=== PATIENT | male | born 1955 | race Caucasian/White ===

== ENCOUNTER 2020-09-30 08:08 | Outpatient (CLI) | payer OTHER | END 2020-09-30 08:09 | disposition home or self-care (01) | LOC: BICULT 08:08 | PROVIDERS: ATTEND Family Medicine | DX: R10.11 Right upper quadrant pain (principal); N28.1 Cyst of kidney, acquired | CPT/HCPCS: 93975 ==

== ENCOUNTER 2022-06-12 23:52 | Inpatient (IN) | payer MEDICARE, OTHER ==
[2022-06-13 00:29] LABS: #Basophils 0.1 thou/uL (0.0-0.2); #Eosinphils 0.2 thou/uL (0.0-0.7); #Lymphocytes 2.4 thou/uL (1.20-3.40); #Monocytes 0.5 thou/uL (0.11-0.59); #Neutrophils 10.3 thou/uL (1.40-6.50); %Basophils 0.5 % (0.0-1.0); %Eosinophils 1.2 % (0.0-10.0); %Lymphocytes 17.8 % (21.0-51.0); %Monocytes 3.6 % (0.0-10.0); Hemoglobin 15.2 g/dL (14.0-18.0); Mean Corpuscular HGB CONC 34.4 g/dL (32.0-36.0); Mean Corpuscular Hemoglobin 33.6 pg (27.0-31.0); Mean Corpuscular Volume 97.7 fl (78.0-98.0); Mean Platelet Volume 8.3 fL (7.4-10.4); Platelet Count 188 10x3/uL (130-400); RBC Distribution Width 11.7 % (11.5-14.5); Red Blood Cell (RBC) Count 4.53 mill/uL (4.70-6.10); White Blood Cell (WBC) Count 13.3 10x3/uL (4.8-10.8)
[2022-06-13 00:50] LABS: ALT (SGPT) 18 U/L (8-55); AST (SGOT) 22 U/L (5-34); Albumin 4.2 g/dL (3.4-4.8); Alkaline Phosphatase 78 U/L (40-110); Anion Gap 17 mmol/L (10-20); BUN (Urea Nitrogen) 16 mg/dL (8.4-25.7); Bilirubin, Total 0.4 mg/dL (0.2-1.2); Calc. Creatinine Clearance 0 mL/min (70-130); Calcium 8.5 mg/dL (7.8-10.44); Carbon Dioxide 20 mmol/L (23-31); Chloride 101 mmol/L (98-107); Estimated GFR 63; Globulin 2.6 g/dL (2.4-3.5); Glucose 385 mg/dL (80-115); Potassium 4.9 mmol/L (3.5-5.1); Protein, Total 6.8 g/dL (5.8-8.1); Sodium 133 mmol/L (136-145)
[2022-06-13] MEDS ORDERED: FENTANYL 50 MCG/ML 1 ML VIAL ONE ×2 (01:07→09:11)
[2022-06-13 01:11] LABS: CKMB 1.8 ng/mL (0-6.6)
[2022-06-13] MEDS ORDERED: Nitroglycerin 0.4 MG TAB (25 Tab Bottle) SL PRN (02:41)
[2022-06-13] MEDS ORDERED: Acetaminophen 325 MG TAB PO PRN (02:41)
[2022-06-13] MEDS ORDERED: Ondansetron PF 4 MG/2 ML Vial IVP PRN (02:41)
[2022-06-13] MEDS ORDERED: Dextrose 50% Abboject 50 ML SYRINGE SLOW IVP PRN (02:41)
[2022-06-13] MEDS ORDERED: Morphine 4 MG/ML VIAL SLOW IVP PRN ×2 (02:41→10:58)
[2022-06-13] MEDS ORDERED: HumaLOG 300 UNITS/3 ML VIAL SC PRN (02:41)
[2022-06-13] MEDS ORDERED: Dextrose 5% in Water 1,000 ML IV PRN (02:41)
[2022-06-13] MEDS ORDERED: Ondansetron ODT 4 MG TAB PO PRN (02:41)
[2022-06-13 04:23] LABS: #Lymphocytes 1.2 thou/uL (1.20-3.40); #Monocytes 0.2 thou/uL (0.11-0.59); #Neutrophils 10.2 thou/uL (1.40-6.50); %Basophils 0.1 % (0.0-1.0); %Eosinophils 0.3 % (0.0-10.0); %Lymphocytes 10.4 % (21.0-51.0); %Monocytes 1.6 % (0.0-10.0); %Neutrophils 87.5 % (42.0-75.0); Hemoglobin 14.3 g/dL (14.0-18.0); Mean Corpuscular HGB CONC 34.5 g/dL (32.0-36.0); Mean Corpuscular Hemoglobin 33.2 pg (27.0-31.0); Mean Corpuscular Volume 96.3 fl (78.0-98.0); Mean Platelet Volume 8.5 fL (7.4-10.4); Platelet Count 161 10x3/uL (130-400); RBC Distribution Width 11.6 % (11.5-14.5); Red Blood Cell (RBC) Count 4.29 mill/uL (4.70-6.10); White Blood Cell (WBC) Count 11.6 10x3/uL (4.8-10.8)
[2022-06-13 04:40] LABS: Anion Gap 12 mmol/L (10-20); BUN (Urea Nitrogen) 15 mg/dL (8.4-25.7); Calc. Creatinine Clearance 0 mL/min (70-130); Calcium 8.3 mg/dL (7.8-10.44); Carbon Dioxide 24 mmol/L (23-31); Cardiac Risk 5.4 (Less than 4.5); Chloride 101 mmol/L (98-107); Cholesterol 183 mg/dl (< 200 Desired); Estimated GFR 66; HDL Cholesterol 34 mg/dL (>60 Neg Risk); LDL Cholesterol, Calculated 103 mg/dL; Magnesium 1.9 mg/dL (1.6-2.6); Potassium 4.9 mmol/L (3.5-5.1); Sodium 132 mmol/L (136-145); Triglycerides 228 mg/dL (Less than 150)
[2022-06-13] MEDS: Sodium Chloride 0.9% 1,000 ML IV SCH ×3 (04:41→19:40)
[2022-06-13 04:51] LABS: Glucose 436 mg/dL (80-115)
[2022-06-13 04:52] LABS: Troponin I 1.036 ng/mL (< 0.028)
[2022-06-13] MEDS: HumaLOG 300 UNITS/3 ML VIAL SC PRN ×3 (05:02→20:10)
[2022-06-13] MEDS ORDERED: Enoxaparin Sodium 100 MG/ML SYRINGE SC SCH ×2 (05:15→21:00)
[2022-06-13] MEDS ORDERED: Morphine 4 MG/ML VIAL SLOW IVP SCH (05:15)
[2022-06-13] MEDS ORDERED: Aspirin 325 MG TAB PO SCH (05:15)
[2022-06-13 05:22] VITALS: BMI 34.9
[2022-06-13 07:40] LABS: Troponin I 12.099 ng/mL (< 0.028)
[2022-06-13] MEDS ORDERED: Heparin 10,000 UNITS/ 10 ML VIAL SLOW IVP SCH (07:45)
[2022-06-13 08:36] LABS: Hemoglobin 14.3 g/dL (14.0-18.0); Platelet Count 170 10x3/uL (130-400)
[2022-06-13] MEDS ORDERED: Heparin 10,000 UNITS/ 10 ML VIAL ONE (08:42)
[2022-06-13] MEDS ORDERED: Lidocaine 1% (PF) 30 ML VIAL ONE (08:43)
[2022-06-13] MEDS ORDERED: Heparin 25,000 units/D5W 500 ML IVPB SCH (09:00)
[2022-06-13] MEDS ORDERED: Aspirin Chewable 81 MG TAB PO SCH (09:00)
[2022-06-13] MEDS ORDERED: Iopamidol 370 76% 100 ML VIAL ONE ×2 (09:09→09:12)
[2022-06-13] MEDS ORDERED: Midazolam HCl 2 mg/2 ml Vial ONE (09:11)
[2022-06-13] MEDS ORDERED: Iopamidol 370 76% 50 ML VIAL FS ONE (09:20)
[2022-06-13] MEDS ORDERED: Heparin 25,000 units/D5W 500 ML ONE (09:33)
[2022-06-13 10:09] LABS: Prothrombin Time 13.8 sec (12.0-14.7)
[2022-06-13 10:10] LABS: PTT 31.1 sec (22.9-36.1)
[2022-06-13] MEDS: Insulin Glargine 30 UNITS/0.3 ML VIAL SC SCH ×2 (10:20→20:03)
[2022-06-13] MEDS ORDERED: Morphine 2 MG/ML VIAL ONE (10:53)
[2022-06-13] MEDS ORDERED: HumaLOG 300 UNITS/3 ML VIAL ONE (11:09)
[2022-06-13] MEDS ORDERED: Lidocaine 1% PF 5 ML VIAL ONE (14:20)
[2022-06-13] MEDS ORDERED: Morphine 4 MG/ML VIAL ONE (15:49)
[2022-06-13] MEDS ORDERED: Communication Order-Pharmacy FS SCH (18:26)
[2022-06-13] MEDS: Morphine 4 MG/ML VIAL SLOW IVP PRN (19:22)
[2022-06-13] MEDS ORDERED: Atorvastatin Calcium 40 MG TAB PO SCH (21:00)
[2022-06-14] MEDS: Morphine 4 MG/ML VIAL SLOW IVP PRN ×4 (02:38→14:50)
[2022-06-14] MEDS: HumaLOG 300 UNITS/3 ML VIAL SC PRN (06:02)
[2022-06-14 06:45] LABS: #Monocytes 1.1 thou/uL (0.11-0.59); #Neutrophils 12.7 thou/uL (1.40-6.50); %Basophils 0.2 % (0.0-1.0); %Eosinophils 0.2 % (0.0-10.0); %Lymphocytes 6.9 % (21.0-51.0); %Monocytes 7.1 % (0.0-10.0); %Neutrophils 85.7 % (42.0-75.0); Hemoglobin 13.7 g/dL (14.0-18.0); Mean Corpuscular HGB CONC 33.4 g/dL (32.0-36.0); Mean Corpuscular Hemoglobin 32.9 pg (27.0-31.0); Mean Corpuscular Volume 98.6 fl (78.0-98.0); Mean Platelet Volume 8.4 fL (7.4-10.4); Platelet Count 147 10x3/uL (130-400); RBC Distribution Width 11.8 % (11.5-14.5); Red Blood Cell (RBC) Count 4.17 mill/uL (4.70-6.10); White Blood Cell (WBC) Count 14.8 10x3/uL (4.8-10.8)
[2022-06-14 06:57] LABS: Anion Gap 11 mmol/L (10-20); BUN (Urea Nitrogen) 18 mg/dL (8.4-25.7); Calc. Creatinine Clearance 115 mL/min (70-130); Calcium 8.1 mg/dL (7.8-10.44); Carbon Dioxide 24 mmol/L (23-31); Chloride 102 mmol/L (98-107); Estimated GFR 95; Glucose 234 mg/dL (80-115); Potassium 4.1 mmol/L (3.5-5.1); Sodium 133 mmol/L (136-145)
[2022-06-14] MEDS ORDERED: PHENYLEPHRINE-NS 100 MCG/ML 10 ML SYRINGE ONE (09:12)
[2022-06-14] MEDS ORDERED: Bupivacaine HCl 0.5%/Epinephrine 1:200,000/PF 30 ml Vial ONE (09:12)
[2022-06-14] MEDS ORDERED: Dexamethasone 4 mg/ml Vial ONE (09:12)
[2022-06-14] MEDS ORDERED: Midazolam HCl 5 mg/5 ml Vial ONE (09:52)
[2022-06-14] MEDS ORDERED: fentaNYL PF 100 MCG/2 ML SYRINGE ONE ×2 (09:52→11:05)
[2022-06-14] MEDS ORDERED: Rocuronium Bromide 50 MG/5 ML VIAL ONE (09:53)
[2022-06-14] MEDS ORDERED: CEFAZOLIN 2 GM in Sodium Chloride 0.9% 100 ML IVPB SCH (10:00)
[2022-06-14] MEDS ORDERED: Heparin 5,000 UNITS/ML VIAL ONE (10:32)
[2022-06-14] MEDS ORDERED: Lidocaine 2% PF 100 mg/5 ml Syringe ONE (10:32)
[2022-06-14] MEDS ORDERED: Thrombin 5000 UNITS/5 ML VIAL ONE (10:32)
[2022-06-14] MEDS ORDERED: Protamine Sulfate 250 MG/25 ML VIAL ONE (10:32)
[2022-06-14] MEDS ORDERED: Calcium Chloride 1 GM/10 ML Abboject SYRINGE ONE (10:32)
[2022-06-14] MEDS ORDERED: PROPOFOL 200 MG/20 ML VIAL ONE (10:32)
[2022-06-14] MEDS ORDERED: Heparin 30,000 units/30 ml VIAL ONE (10:32)
[2022-06-14] MEDS ORDERED: Papaverine 60 MG/2 ML VIAL ONE (10:32)
[2022-06-14] MEDS ORDERED: Succinylcholine 200 MG/10 ml SYRINGE FS ONE (10:32)
[2022-06-14] MEDS ORDERED: Mannitol 12.5 GM/50 ML ONE (10:32)
[2022-06-14] MEDS ORDERED: Aminocaproic Acid 5 GM/20 ML VIAL ONE (10:32)
[2022-06-14] MEDS ORDERED: Cardioplegic Soln 1,000 ML BAG ONE (10:32)
[2022-06-14] MEDS ORDERED: Magnesium Sulfate 1 GM/2 ML VIAL ONE (10:32)
[2022-06-14] MEDS ORDERED: Rocuronium Bromide 10 MG/ML (10ML VIAL) ONE (10:32)
[2022-06-14] MEDS ORDERED: Esmolol 100 MG/10 ML VIAL ONE (10:32)
[2022-06-14] MEDS ORDERED: Sodium Bicarb 50 MEQ/50 ML Abboject 8.4% SYRINGE ONE (10:32)
[2022-06-14] MEDS ORDERED: Clindamycin/D5W 900 mg/50 ml Premix Bag ONE (10:50)
[2022-06-14] MEDS ORDERED: Insulin Regular 300 UNITS/3 ML VIAL ONE (11:04)
[2022-06-14] MEDS ORDERED: hydrALAZINE 20 MG/ML VIAL SLOW IVP PRN (13:42)
[2022-06-14] MEDS ORDERED: Guaifenesin DM 100-10/5 ML UDCUP PO PRN (13:42)
[2022-06-14] MEDS ORDERED: Mag-Al 1200 mg/1200 mg/30 ML UDCUP PO PRN (13:42)
[2022-06-14] MEDS ORDERED: Hetastarch 6% 500 ML 500 ML IVPB PRN (13:42)
[2022-06-14] MEDS ORDERED: Bisacodyl 10 MG SUPP PR PRN (13:42)
[2022-06-14] MEDS ORDERED: Acetaminophen 325 MG TAB PO PRN (13:42)
[2022-06-14] MEDS ORDERED: NOREPINEPHRINE 8 MG/250 ML-D5W 250 ML IVPB PRN (13:42)
[2022-06-14] MEDS ORDERED: Post-Op Insulin Drip Protocol IVPB ONE (13:42)
[2022-06-14] MEDS ORDERED: FENTANYL 50 MCG/ML 1 ML VIAL SLOW IVP PRN ×2 (13:42)
[2022-06-14] MEDS ORDERED: Ondansetron PF 4 MG/2 ML Vial IVP PRN (13:42)
[2022-06-14] MEDS ORDERED: Lactated Ringer's 1,000 ML IV SCH (13:42)
[2022-06-14] MEDS ORDERED: niCARdipine 25 MG in Sodium Chloride 0.9% 250 ML 250 ML IVPB PRN (13:42)
[2022-06-14 13:51] LABS: Actual Bicarbonate (HCO3a) 22.1 mEq/L (22-28); Base Excess (BEa) -4.9 mEq/L (-2.0 to +3.0); CO2 Tension 48.6 mmHg (35.0-45.0); Calcium, Ionized (arterial) 1.14 mmol/L (1.12-1.30); Carboxyhemoglobin (COHb) 1.8 gm% (0.0-3.0); Hemoglobin (Hb) 13.5 g/dL (14.0-18.0); Potassium - ABG Lab 4.25 mmol/L (3.70-5.30); pH, Arterial 7.28 (7.35-7.45)
[2022-06-14 13:54] LABS: O2 Tension (PaO2), arterial 58.3 mmHg (> 80.0); Puncture Site Arterial Line
[2022-06-14] MEDS ORDERED: Dextrose 50% Abboject 50 ML SYRINGE SLOW IVP PRN (14:00)
[2022-06-14] MEDS ORDERED: Dextrose 5% in Water 1,000 ML IV PRN (14:00)
[2022-06-14] MEDS ORDERED: Insulin Regular 300 UNITS/3 ML VIAL SC PRN (14:00)
[2022-06-14 14:19] LABS: Anion Gap 11 mmol/L (10-20); BUN (Urea Nitrogen) 18 mg/dL (8.4-25.7); Calc. Creatinine Clearance 129 mL/min (70-130); Calcium 7.6 mg/dL (7.8-10.44); Carbon Dioxide 20 mmol/L (23-31); Chloride 108 mmol/L (98-107); Estimated GFR 99; Glucose 176 mg/dL (80-115); Potassium 4.1 mmol/L (3.5-5.1); Sodium 135 mmol/L (136-145)
[2022-06-14] MEDS: HUMULIN R 100 UNITS in Sodium Chloride 0.9% 100 ML IVPB SCH ×2 (14:24→14:26)
[2022-06-14 14:25] LABS: INR-International Normal Ratio 1.2
[2022-06-14 14:57] LABS: Hemoglobin 13.3 g/dL (14.0-18.0); Mean Corpuscular HGB CONC 33.3 g/dL (32.0-36.0); Mean Corpuscular Volume 99.1 fl (78.0-98.0); Platelet Count 144 10x3/uL (130-400); RBC Distribution Width 11.9 % (11.5-14.5); Red Blood Cell (RBC) Count 4.02 mill/uL (4.70-6.10)
[2022-06-14 15:19] LABS: Band 3 % (5-11); Lymphocytes 3 % (21-51); MDiff Complete? YES; Macrocytosis SLIGHT = 6-15 cells (100X) (0-5/hpf); Monocytes 2 % (0-10); Neutrophil 90 % (42-75); Platelet Morphology Comment Appears Adequate; Polychromasia SLIGHT = 2-3 cells (100X) (0-2/hpf); Reactive Lymphocytes 2 % (0-10)
[2022-06-14] MEDS: traMADol HCl 50 MG TAB PO PRN ×2 (16:39→21:59)
[2022-06-14] MEDS: Ketorolac Tromethamine 30 MG/ML VIAL IVP SCH (16:57)
[2022-06-14] MEDS: Clindamycin/D5W 900 MG in Premix Bag 1 BAG IVPB SCH (16:57)
[2022-06-14 18:41] LABS: Hemoglobin 11.9 g/dL (14.0-18.0)
[2022-06-14 19:05] LABS: Potassium 3.8 mmol/L (3.5-5.1)
[2022-06-14] MEDS: Potassium Chloride 20 MEQ/100 ML PREMIX BAG IVPB PRN (20:50)
[2022-06-14] MEDS ORDERED: Atorvastatin Calcium 20 MG TAB PO SCH (21:00)
[2022-06-14] MEDS ORDERED: Famotidine/PF 20 mg/2ml Vial SLOW IVP SCH (21:00)
[2022-06-15] MEDS: Ketorolac Tromethamine 30 MG/ML VIAL IVP SCH ×5 (00:09→23:50)
[2022-06-15 05:06] LABS: Anion Gap 12 mmol/L (10-20); BUN (Urea Nitrogen) 24 mg/dL (8.4-25.7); Calc. Creatinine Clearance 116 mL/min (70-130); Calcium 7.7 mg/dL (7.8-10.44); Carbon Dioxide 22 mmol/L (23-31); Chloride 106 mmol/L (98-107); Estimated GFR 95; Glucose 103 mg/dL (80-115); Sodium 136 mmol/L (136-145)
[2022-06-15 05:12] LABS: #Monocytes 1.3 thou/uL (0.11-0.59); %Basophils 0.1 % (0.0-1.0); %Lymphocytes 6.3 % (21.0-51.0); %Monocytes 7.7 % (0.0-10.0); %Neutrophils 85.9 % (42.0-75.0); Mean Corpuscular HGB CONC 34.4 g/dL (32.0-36.0); Mean Corpuscular Hemoglobin 34.4 pg (27.0-31.0); Mean Platelet Volume 8.7 fL (7.4-10.4); Platelet Count 119 10x3/uL (130-400); Platelet Morphology Comment Appears Decreased; RBC Distribution Width 11.9 % (11.5-14.5); Red Blood Cell (RBC) Count 3.49 mill/uL (4.70-6.10); White Blood Cell (WBC) Count 16.3 10x3/uL (4.8-10.8)
[2022-06-15] MEDS ORDERED: Dextrose 5% in Water 1,000 ML IV PRN (06:54)
[2022-06-15] MEDS ORDERED: Dextrose 50% Abboject 50 ML SYRINGE SLOW IVP PRN (06:54)
[2022-06-15] MEDS: Magnesium 2 GM/50 ML(in water) 2 GM in Premix Bag 1 BAG IVPB SCH (08:22)
[2022-06-15] MEDS: Aspirin 325 MG TAB PO SCH (08:23)
[2022-06-15] MEDS ORDERED: Furosemide 40 MG TAB PO SCH (09:15)
[2022-06-15] MEDS: HumaLOG 300 UNITS/3 ML VIAL SC PRN ×3 (11:14→21:34)
[2022-06-15] MEDS: Bisacodyl 5 MG TAB PO PRN (11:17)
[2022-06-15] MEDS: traMADol HCl 50 MG TAB PO PRN (13:38)
[2022-06-15] MEDS ORDERED: Insulin Glargine 30 UNITS/0.3 ML VIAL SC PRN (13:47)
[2022-06-15] MEDS: Clindamycin/D5W 900 MG in Premix Bag 1 BAG IVPB SCH (18:24)
[2022-06-15] MEDS: Atorvastatin Calcium 40 MG TAB PO SCH (21:23)
[2022-06-15] MEDS ORDERED: Tamsulosin HCl 0.4 MG CAP PO SCH (23:00)
[2022-06-16 05:13] LABS: #Lymphocytes 0.9 thou/uL (1.20-3.40); #Monocytes 0.7 thou/uL (0.11-0.59); #Neutrophils 10.5 thou/uL (1.40-6.50); %Basophils 0.1 % (0.0-1.0); %Eosinophils 0.2 % (0.0-10.0); %Lymphocytes 7.1 % (21.0-51.0); %Monocytes 6.1 % (0.0-10.0); %Neutrophils 86.5 % (42.0-75.0); Hemoglobin 10.6 g/dL (14.0-18.0); Mean Corpuscular HGB CONC 34.1 g/dL (32.0-36.0); Mean Corpuscular Hemoglobin 33.9 pg (27.0-31.0); Mean Corpuscular Volume 99.4 fl (78.0-98.0); Mean Platelet Volume 8.6 fL (7.4-10.4); Platelet Count 109 10x3/uL (130-400); RBC Distribution Width 11.6 % (11.5-14.5); Red Blood Cell (RBC) Count 3.12 mill/uL (4.70-6.10); White Blood Cell (WBC) Count 12.1 10x3/uL (4.8-10.8)
[2022-06-16 05:17] LABS: Anion Gap 12 mmol/L (10-20); BUN (Urea Nitrogen) 36 mg/dL (8.4-25.7); Calc. Creatinine Clearance 102 mL/min (70-130); Carbon Dioxide 24 mmol/L (23-31); Chloride 100 mmol/L (98-107); Estimated GFR 80; Glucose 291 mg/dL (80-115); Potassium 3.7 mmol/L (3.5-5.1); Sodium 132 mmol/L (136-145)
[2022-06-16] MEDS ORDERED: Furosemide 40 MG TAB PO SCH (07:30)
[2022-06-16] MEDS: Carvedilol 3.125 MG TAB PO SCH ×2 (08:26→17:10)
[2022-06-16] MEDS: Magnesium 2 GM/50 ML(in water) 2 GM in Premix Bag 1 BAG IVPB SCH (08:26)
[2022-06-16] MEDS: Aspirin 325 MG TAB PO SCH (08:27)
[2022-06-16] MEDS: Potassium Chloride 10 MEQ TAB PO SCH (08:27)
[2022-06-16] MEDS: Tamsulosin HCl 0.4 MG CAP PO SCH (08:28)
[2022-06-16] MEDS: traMADol HCl 50 MG TAB PO PRN ×3 (08:29→20:43)
[2022-06-16] MEDS: Ketorolac Tromethamine 30 MG/ML VIAL IVP SCH ×3 (08:31→17:17)
[2022-06-16] MEDS ORDERED: Metolazone 5 MG TAB PO SCH (09:00)
[2022-06-16] MEDS: HumaLOG 300 UNITS/3 ML VIAL SC PRN ×4 (09:15→20:30)
[2022-06-16] MEDS: Furosemide 40 MG TAB PO SCH ×2 (09:46→15:00)
[2022-06-16] MEDS: Clindamycin/D5W 900 MG in Premix Bag 1 BAG IVPB SCH (17:14)
[2022-06-16] MEDS: Atorvastatin Calcium 40 MG TAB PO SCH (20:42)
[2022-06-17] MEDS: Ketorolac Tromethamine 30 MG/ML VIAL IVP SCH ×4 (00:20→17:40)
[2022-06-17] MEDS: HumaLOG 300 UNITS/3 ML VIAL SC PRN ×5 (00:21→16:33)
[2022-06-17 05:01] LABS: #Eosinphils 0.1 thou/uL (0.0-0.7); #Monocytes 1.1 thou/uL (0.11-0.59); #Neutrophils 10.3 thou/uL (1.40-6.50); %Basophils 0.2 % (0.0-1.0); %Eosinophils 1.1 % (0.0-10.0); %Lymphocytes 8.1 % (21.0-51.0); %Monocytes 8.8 % (0.0-10.0); %Neutrophils 81.9 % (42.0-75.0); Hemoglobin 9.9 g/dL (14.0-18.0); Mean Corpuscular HGB CONC 33.1 g/dL (32.0-36.0); Mean Corpuscular Volume 99.6 fl (78.0-98.0); Mean Platelet Volume 9.1 fL (7.4-10.4); Platelet Count 133 10x3/uL (130-400); RBC Distribution Width 11.5 % (11.5-14.5); White Blood Cell (WBC) Count 12.6 10x3/uL (4.8-10.8)
[2022-06-17 05:22] LABS: Anion Gap 13 mmol/L (10-20); BUN (Urea Nitrogen) 40 mg/dL (8.4-25.7); Calc. Creatinine Clearance 100 mL/min (70-130); Calcium 8.1 mg/dL (7.8-10.44); Carbon Dioxide 26 mmol/L (23-31); Chloride 96 mmol/L (98-107); Estimated GFR 77; Glucose 147 mg/dL (80-115); Potassium 3.2 mmol/L (3.5-5.1); Sodium 132 mmol/L (136-145)
[2022-06-17] MEDS: Potassium Chloride 20 MEQ/100 ML PREMIX BAG IVPB PRN (06:26)
[2022-06-17] MEDS: Carvedilol 3.125 MG TAB PO SCH ×3 (07:31→20:58)
[2022-06-17] MEDS: Aspirin 325 MG TAB PO SCH (07:32)
[2022-06-17] MEDS: Potassium Chloride 10 MEQ TAB PO SCH (07:32)
[2022-06-17] MEDS: Furosemide 40 MG TAB PO SCH ×2 (07:32→13:29)
[2022-06-17] MEDS: Tamsulosin HCl 0.4 MG CAP PO SCH (07:33)
[2022-06-17] MEDS: Bisacodyl 5 MG TAB PO PRN (07:33)
[2022-06-17] MEDS: traMADol HCl 50 MG TAB PO PRN ×2 (07:34→16:33)
[2022-06-17] MEDS: Clindamycin/D5W 900 MG in Premix Bag 1 BAG IVPB SCH (17:45)
[2022-06-17] MEDS ORDERED: Bisacodyl 10 MG SUPP PR PRN (18:31)
[2022-06-17] MEDS ORDERED: Guaifenesin DM 100-10/5 ML UDCUP PO PRN (18:31)
[2022-06-17] MEDS ORDERED: Mineral Oil ENEMA PR PRN (18:31)
[2022-06-17] MEDS ORDERED: diphenhydrAMINE 25 MG CAP PO PRN (18:31)
[2022-06-17] MEDS ORDERED: Zolpidem Tartrate 5 MG TAB PO PRN (18:31)
[2022-06-17] MEDS ORDERED: Nitroglycerin 0.4 MG TAB (25 Tab Bottle) SL PRN (18:31)
[2022-06-17] MEDS ORDERED: Mag-Al 1200 mg/1200 mg/30 ML UDCUP PO PRN (18:31)
[2022-06-17] MEDS ORDERED: Potassium Chloride 10 MEQ TAB PO SCH (18:45)
[2022-06-17] MEDS: Atorvastatin Calcium 40 MG TAB PO SCH (20:58)
[2022-06-18] MEDS: traMADol HCl 50 MG TAB PO PRN ×2 (06:07→14:05)
[2022-06-18] MEDS: Insulin Regular 300 UNITS/3 ML VIAL SC PRN ×4 (06:09→20:22)
[2022-06-18] MEDS: Potassium Chloride 10 MEQ TAB PO SCH ×2 (08:51→16:49)
[2022-06-18] MEDS: Tamsulosin HCl 0.4 MG CAP PO SCH (08:51)
[2022-06-18] MEDS: Furosemide 40 MG TAB PO SCH ×2 (08:52→14:04)
[2022-06-18] MEDS: Carvedilol 3.125 MG TAB PO SCH ×2 (08:52→20:15)
[2022-06-18] MEDS: Clopidogrel Bisulfate 75 MG TAB PO SCH (08:52)
[2022-06-18] MEDS: Insulin Glargine 30 UNITS/0.3 ML VIAL SC SCH ×2 (09:19→20:15)
[2022-06-18] MEDS: Aspirin 325 mg Enteric Coated Tablet PO SCH (09:26)
[2022-06-18] MEDS: Bisacodyl 5 MG TAB PO PRN (14:05)
[2022-06-18] MEDS ORDERED: Lisinopril 2.5 MG TAB PO SCH (14:15)
[2022-06-18] MEDS: Atorvastatin Calcium 40 MG TAB PO SCH (20:15)
[2022-06-19] MEDS: traMADol HCl 50 MG TAB PO PRN ×2 (05:58→11:49)
[2022-06-19] MEDS: Insulin Regular 300 UNITS/3 ML VIAL SC PRN ×4 (06:03→21:27)
[2022-06-19 09:32] LABS: Anion Gap 15 mmol/L (10-20); BUN (Urea Nitrogen) 39 mg/dL (8.4-25.7); Calc. Creatinine Clearance 89 mL/min (70-130); Calcium 8.6 mg/dL (7.8-10.44); Carbon Dioxide 30 mmol/L (23-31); Chloride 90 mmol/L (98-107); Estimated GFR 71; Glucose 234 mg/dL (80-115); Potassium 3.5 mmol/L (3.5-5.1); Sodium 131 mmol/L (136-145)
[2022-06-19] MEDS: Lisinopril 2.5 MG TAB PO SCH (09:36)
[2022-06-19] MEDS: Carvedilol 3.125 MG TAB PO SCH ×2 (09:36→20:35)
[2022-06-19] MEDS: Insulin Glargine 30 UNITS/0.3 ML VIAL SC SCH ×2 (09:37→21:28)
[2022-06-19] MEDS: Furosemide 40 MG TAB PO SCH ×2 (09:37→14:03)
[2022-06-19] MEDS: Potassium Chloride 10 MEQ TAB PO SCH ×2 (09:37→17:48)
[2022-06-19] MEDS: Tamsulosin HCl 0.4 MG CAP PO SCH (09:37)
[2022-06-19] MEDS: Clopidogrel Bisulfate 75 MG TAB PO SCH (09:37)
[2022-06-19] MEDS: Aspirin 325 mg Enteric Coated Tablet PO SCH (09:43)
[2022-06-19] MEDS: Atorvastatin Calcium 40 MG TAB PO SCH (20:35)
[2022-06-20] MEDS: Bisacodyl 5 MG TAB PO PRN (01:58)
[2022-06-20] MEDS: Insulin Regular 300 UNITS/3 ML VIAL SC PRN (06:30)
[2022-06-20] MEDS: Potassium Chloride 10 MEQ TAB PO SCH ×2 (09:42→17:15)
[2022-06-20] MEDS: Tamsulosin HCl 0.4 MG CAP PO SCH (09:42)
[2022-06-20] MEDS: Clopidogrel Bisulfate 75 MG TAB PO SCH (09:49)
[2022-06-20] MEDS: Furosemide 40 MG TAB PO SCH ×2 (09:49→14:02)
[2022-06-20] MEDS: Insulin Glargine 30 UNITS/0.3 ML VIAL SC SCH ×2 (09:49→21:54)
[2022-06-20] MEDS ORDERED: Aspirin 81 mg Enteric Coated Tablet PO SCH (10:00)
[2022-06-20] MEDS: Aspirin 325 mg Enteric Coated Tablet PO SCH (10:13)
[2022-06-20] MEDS: Carvedilol 3.125 MG TAB PO SCH ×2 (10:13→21:56)
[2022-06-20] MEDS: Lisinopril 2.5 MG TAB PO SCH (10:14)
[2022-06-20] MEDS ORDERED: Insulin Glargine 30 UNITS/0.3 ML VIAL SC SCH (12:00)
[2022-06-20] MEDS ORDERED: Mineral Oil ENEMA PR SCH (12:30)
[2022-06-20] MEDS ORDERED: HumaLOG 300 UNITS/3 ML VIAL SC SCH (12:30)
[2022-06-20] MEDS ORDERED: Senokot S 8.6-50 MG TAB PO SCH (12:30)
[2022-06-20] MEDS: Atorvastatin Calcium 40 MG TAB PO SCH (21:55)
[2022-06-20] MEDS: Senokot S 8.6-50 MG TAB PO SCH (21:56)
[2022-06-20] MEDS: HumaLOG 300 UNITS/3 ML VIAL SC SCH (21:56)
[2022-06-21 04:13] LABS: #Eosinphils 0.2 thou/uL (0.0-0.7); #Lymphocytes 1.6 thou/uL (1.20-3.40); #Monocytes 1.8 thou/uL (0.11-0.59); #Neutrophils 10.2 thou/uL (1.40-6.50); %Basophils 0.2 % (0.0-1.0); %Eosinophils 1.7 % (0.0-10.0); %Lymphocytes 11.4 % (21.0-51.0); %Monocytes 12.8 % (0.0-10.0); %Neutrophils 73.9 % (42.0-75.0); Hemoglobin 11.2 g/dL (14.0-18.0); Mean Corpuscular HGB CONC 34.9 g/dL (32.0-36.0); Mean Corpuscular Hemoglobin 34.5 pg (27.0-31.0); Mean Corpuscular Volume 98.9 fl (78.0-98.0); Mean Platelet Volume 8.2 fL (7.4-10.4); Platelet Count 339 10x3/uL (130-400); RBC Distribution Width 11.7 % (11.5-14.5); Red Blood Cell (RBC) Count 3.26 mill/uL (4.70-6.10); White Blood Cell (WBC) Count 13.8 10x3/uL (4.8-10.8)
[2022-06-21 04:39] LABS: Anion Gap 17 mmol/L (10-20); BUN (Urea Nitrogen) 43 mg/dL (8.4-25.7); Calc. Creatinine Clearance 76 mL/min (70-130); Calcium 8.7 mg/dL (7.8-10.44); Carbon Dioxide 32 mmol/L (23-31); Chloride 88 mmol/L (98-107); Estimated GFR 57; Glucose 122 mg/dL (80-115); Sodium 134 mmol/L (136-145)
[2022-06-21] MEDS: Clopidogrel Bisulfate 75 MG TAB PO SCH (09:17)
[2022-06-21] MEDS: Carvedilol 3.125 MG TAB PO SCH ×2 (09:17→20:58)
[2022-06-21] MEDS: Potassium Chloride 10 MEQ TAB PO SCH ×2 (09:17→18:22)
[2022-06-21] MEDS: Furosemide 40 MG TAB PO SCH (09:17)
[2022-06-21] MEDS: Aspirin 81 mg Enteric Coated Tablet PO SCH (09:17)
[2022-06-21] MEDS: Insulin Glargine 30 UNITS/0.3 ML VIAL SC SCH ×2 (09:18→20:59)
[2022-06-21] MEDS: Senokot S 8.6-50 MG TAB PO SCH ×2 (09:19→20:59)
[2022-06-21] MEDS: Tamsulosin HCl 0.4 MG CAP PO SCH (09:19)
[2022-06-21] MEDS: Lisinopril 2.5 MG TAB PO SCH (09:19)
[2022-06-21] MEDS: HumaLOG 300 UNITS/3 ML VIAL SC SCH ×3 (09:24→20:59)
[2022-06-21] MEDS ORDERED: Potassium Chloride 20 MEQ TAB PO SCH (14:45)
[2022-06-21] MEDS: Atorvastatin Calcium 40 MG TAB PO SCH (20:58)
[2022-06-21] MEDS: traMADol HCl 50 MG TAB PO PRN (21:02)
[2022-06-22] MEDS: traMADol HCl 50 MG TAB PO PRN (03:58)
[2022-06-22 05:25] LABS: Anion Gap 15 mmol/L (10-20); BUN (Urea Nitrogen) 33 mg/dL (8.4-25.7); Calc. Creatinine Clearance 77 mL/min (70-130); Calcium 8.2 mg/dL (7.8-10.44); Carbon Dioxide 31 mmol/L (23-31); Chloride 90 mmol/L (98-107); Estimated GFR 61; Glucose 171 mg/dL (80-115); Potassium 2.8 mmol/L (3.5-5.1); Sodium 133 mmol/L (136-145)
[2022-06-22] MEDS: Potassium Chloride 20 MEQ/100 ML PREMIX BAG IVPB PRN (06:20)
[2022-06-22] MEDS: Potassium Chloride 10 MEQ TAB PO SCH ×2 (08:49→16:32)
[2022-06-22] MEDS: Aspirin 81 mg Enteric Coated Tablet PO SCH (08:49)
[2022-06-22] MEDS: Clopidogrel Bisulfate 75 MG TAB PO SCH (08:50)
[2022-06-22] MEDS: Tamsulosin HCl 0.4 MG CAP PO SCH (08:51)
[2022-06-22] MEDS: Senokot S 8.6-50 MG TAB PO SCH (08:51)
[2022-06-22] MEDS: Lisinopril 2.5 MG TAB PO SCH (08:51)
[2022-06-22] MEDS: Insulin Glargine 30 UNITS/0.3 ML VIAL SC SCH (08:52)
[2022-06-22] MEDS: HumaLOG 300 UNITS/3 ML VIAL SC SCH ×2 (08:53→16:33)
[2022-06-22] MEDS ORDERED: Carvedilol 3.125 MG TAB PO SCH (09:00)
[2022-06-22] MEDS: Insulin Regular 300 UNITS/3 ML VIAL SC PRN (12:03)
[2022-06-22] MEDS ORDERED: Potassium Chloride 20 MEQ TAB PO SCH (18:00)
[2022-06-22 20:39] VITALS: BP 113/56; TEMP 98.1
== END 2022-06-22 19:45 | DRG 233 ==
LOC: ERS 23:52 → 2SW 06-13 02:20 → OBSVTOIN 06-13 09:40 → CCU 06-13 10:35 → 2NO 06-17 16:44
PROVIDERS: ADMIT Student in an Organized Health Care Education/Training Program; ATTEND Family Medicine
PROC: 4A023N7 Measurement of Cardiac Sampling and Pressure, Left Heart, Percutaneous Approach (ICD-10-PCS; 2022-06-13)
PROC: B2111ZZ Fluoroscopy of Multiple Coronary Arteries using Low Osmolar Contrast (ICD-10-PCS; 2022-06-13)
PROC: B2151ZZ Fluoroscopy of Left Heart using Low Osmolar Contrast (ICD-10-PCS; 2022-06-13)
PROC: 02100Z9 Bypass Coronary Artery, One Artery from Left Internal Mammary, Open Approach (ICD-10-PCS; principal; 2022-06-14)
PROC: 021009W Bypass Coronary Artery, One Artery from Aorta with Autologous Venous Tissue, Open Approach (ICD-10-PCS; 2022-06-14)
PROC: 06BQ0ZZ Excision of Left Saphenous Vein, Open Approach (ICD-10-PCS; 2022-06-14)
PROC: 02L70CK Occlusion of Left Atrial Appendage with Extraluminal Device, Open Approach (ICD-10-PCS; 2022-06-14)
PROC: 5A1221Z Performance of Cardiac Output, Continuous (ICD-10-PCS; 2022-06-14)
PROC: 02H633Z Insertion of Infusion Device into Right Atrium, Percutaneous Approach (ICD-10-PCS; 2022-06-14)
DX: I21.4 Non-ST elevation (NSTEMI) myocardial infarction (principal); J96.01 Acute respiratory failure with hypoxia; J90 Pleural effusion, not elsewhere classified; N17.9 Acute kidney failure, unspecified; K59.01 Slow transit constipation; E11.65 Type 2 diabetes mellitus with hyperglycemia; I25.10 Atherosclerotic heart disease of native coronary artery without angina pectoris; F17.210 Nicotine dependence, cigarettes, uncomplicated; D72.829 Elevated white blood cell count, unspecified; E66.01 Morbid (severe) obesity due to excess calories; I10 Essential (primary) hypertension; E78.5 Hyperlipidemia, unspecified; E87.6 Hypokalemia; K59.00 Constipation, unspecified; Z20.822 Contact with and (suspected) exposure to COVID-19; Z79.4 Long term (current) use of insulin; Z79.84 Long term (current) use of oral hypoglycemic drugs; Z80.9 Family history of malignant neoplasm, unspecified; Z68.34 Body mass index [BMI] 34.0-34.9, adult; Z82.49 Family history of ischemic heart disease and other diseases of the circulatory system; Z90.49 Acquired absence of other specified parts of digestive tract; Z98.890 Other specified postprocedural states; Z71.6 Tobacco abuse counseling
CPT/HCPCS: 36415; 36416; 36430; 71045; 71275; 74174; 75710; 80048; 80053; 80061; 82553; 82805; 83735; 83880; 84484; 85025; 85610; 85730; 86850; 86900; 86901; 87811; 93005; 93010; 93306; 93458; 93798; 94002; 94640; 94760; 96361; 96372; 96374; 96375; 96376; 99152; C1713; C1751; C1769; C1776; G0378; J1100; J1644; J1650; J1815; J1885; J2001; J2150; J2250; J2270; J2405; J2440; J2704; J2720; J3010; J3370; J3475; J3480; J3490; J7050; J7120; J7620; P9045; Q9967; S0017; S0028; U0003; U0005

== ENCOUNTER 2022-09-05 08:37 | Outpatient (CLI) | payer MEDICARE, OTHER ==
[2022-09-05] MEDS ORDERED: Iopamidol 370 76% 100 ML VIAL ONE (10:23)
== END 2022-09-05 08:38 | disposition home or self-care (01) ==
LOC: CT 08:37
PROVIDERS: ATTEND Internal Medicine Cardiovascular Disease
DX: R07.1 Chest pain on breathing (principal); Z98.890 Other specified postprocedural states
CPT/HCPCS: 36415; 71260; 80053; 80061; 83036; 83880; 84439; 84443; 84481; 85025; Q9967

== ENCOUNTER 2023-01-10 15:15 | Outpatient (CLI) | payer MEDICARE, OTHER | END 2023-01-10 15:16 | disposition home or self-care (01) | LOC: BICRAD 15:15 | PROVIDERS: ATTEND Family Medicine | DX: M54.6 Pain in thoracic spine (principal); M47.814 Spondylosis without myelopathy or radiculopathy, thoracic region | CPT/HCPCS: 72072 ==

== ENCOUNTER 2023-02-10 18:39 | Emergency (ER) | payer MEDICARE, OTHER ==
[2023-02-10 19:41] LABS: #Eosinphils 0.1 thou/uL (0.0-0.7); #Monocytes 0.4 thou/uL (0.11-0.59); %Basophils 0.4 % (0.0-1.0); %Eosinophils 1.3 % (0.0-10.0); %Lymphocytes 10.8 % (21.0-51.0); %Monocytes 4.3 % (0.0-10.0); %Neutrophils 82.8 % (42.0-75.0); Hematocrit 33.2 % (42.0-52.0); Hemoglobin 11.6 g/dL (14.0-18.0); Mean Corpuscular HGB CONC 34.9 g/dL (32.0-36.0); Mean Corpuscular Hemoglobin 33.2 pg (27.0-31.0); Platelet Count 196 10x3/uL (130-400); RBC Distribution Width 12.7 % (11.5-14.5); Red Blood Cell (RBC) Count 3.49 mill/uL (4.70-6.10); White Blood Cell (WBC) Count 8.4 10x3/uL (4.8-10.8)
[2023-02-10 19:59] LABS: Mean Corpuscular Volume 95.1 fl (78.0-98.0)
[2023-02-10 20:08] LABS: ALT (SGPT) 13 U/L (8-55); AST (SGOT) 16 U/L (5-34); Albumin 3.9 g/dL (3.4-4.8); Alkaline Phosphatase 92 U/L (40-110); Anion Gap 13 mmol/L (10-20); BUN (Urea Nitrogen) 33 mg/dL (8.4-25.7); Bilirubin, Total 0.4 mg/dL (0.2-1.2); Calc. Creatinine Clearance 0 mL/min (70-130); Calcium 8.6 mg/dL (7.8-10.44); Carbon Dioxide 24 mmol/L (23-31); Chloride 105 mmol/L (98-107); Estimated GFR 78; Globulin 2.6 g/dL (2.4-3.5); Glucose 129 mg/dL (80-115); Potassium 4.1 mmol/L (3.5-5.1); Protein, Total 6.5 g/dL (5.8-8.1); Sodium 138 mmol/L (136-145)
== END 2023-02-10 20:50 | disposition home or self-care (01) ==
LOC: ERS 18:39
DX: E86.0 Dehydration (principal); E11.649 Type 2 diabetes mellitus with hypoglycemia without coma; R55 Syncope and collapse; Z87.891 Personal history of nicotine dependence; Z79.899 Other long term (current) drug therapy; Z79.4 Long term (current) use of insulin; Z12.5 Encounter for screening for malignant neoplasm of prostate; Z13.29 Encounter for screening for other suspected endocrine disorder; I25.10 Atherosclerotic heart disease of native coronary artery without angina pectoris; E11.65 Type 2 diabetes mellitus with hyperglycemia; N40.1 Benign prostatic hyperplasia with lower urinary tract symptoms
CPT/HCPCS: 70450; 71101; 80061; 82043; 82962; 83036; 84484; 93005; 96360; 99285; G0103; 36415; 36416; 80053; 84443; 85025

== ENCOUNTER 2023-08-29 08:32 | Emergency (ER) | payer MEDICARE, OTHER ==
[2023-08-29 09:23] LABS: #Eosinphils 0.2 thou/uL (0.0-0.7); #Monocytes 0.4 thou/uL (0.11-0.59); #Neutrophils 6.5 thou/uL (1.40-6.50); %Basophils 0.2 % (0.0-1.0); %Eosinophils 1.9 % (0.0-10.0); %Lymphocytes 12.4 % (21.0-51.0); %Monocytes 4.7 % (0.0-10.0); %Neutrophils 80.7 % (42.0-75.0); Hemoglobin 13.6 g/dL (14.0-18.0); Mean Corpuscular HGB CONC 34.9 g/dL (32.0-36.0); Mean Corpuscular Hemoglobin 33.7 pg (27.0-31.0); Mean Corpuscular Volume 96.5 fl (78.0-98.0); Mean Platelet Volume 10.1 fL (7.4-10.4); Platelet Count 163 10x3/uL (130-400); RBC Distribution Width 12.1 % (11.5-14.5); Red Blood Cell (RBC) Count 4.04 mill/uL (4.70-6.10)
[2023-08-29 09:49] LABS: ALT (SGPT) 10 U/L (8-55); AST (SGOT) 11 U/L (5-34); Albumin 3.9 g/dL (3.4-4.8); Alkaline Phosphatase 80 U/L (40-110); Anion Gap 11 mmol/L (10-20); BUN (Urea Nitrogen) 23 mg/dL (8.4-25.7); Bilirubin, Total 0.7 mg/dL (0.2-1.2); Calc. Creatinine Clearance 0 mL/min (70-130); Calcium 8.5 mg/dL (7.8-10.44); Carbon Dioxide 24 mmol/L (23-31); Chloride 105 mmol/L (98-107); Estimated GFR 69; Globulin 2.4 g/dL (2.4-3.5); Glucose 350 mg/dL (80-115); Lipase 13 U/L (8-78); Potassium 5.1 mmol/L (3.5-5.1); Protein, Total 6.3 g/dL (5.8-8.1); Sodium 135 mmol/L (136-145)
[2023-08-29 09:53] LABS: Troponin I Less than 0.010 ng/mL (< 0.028)
[2023-08-29] MEDS ORDERED: Ondansetron PF 4 MG/2 ML Vial ONE (10:14)
[2023-08-29 12:23] LABS: Troponin I Less than 0.010 ng/mL (< 0.028)
== END 2023-08-29 12:50 | disposition home or self-care (01) ==
LOC: ERS 08:32
DX: R07.9 Chest pain, unspecified (principal); R11.0 Nausea; E11.9 Type 2 diabetes mellitus without complications; I25.2 Old myocardial infarction; Z95.0 Presence of cardiac pacemaker; Z87.891 Personal history of nicotine dependence
CPT/HCPCS: 36415; 36416; 71045; 80053; 83690; 83880; 84484; 85025; 93005; 94760; 96374; J2405

== ENCOUNTER 2025-03-03 09:19 | Emergency (ER) | payer MEDICARE, OTHER ==
[2025-03-03] MEDS ORDERED: Iopamidol-370 76% 500 ML MDV (1 ML CHARGE) ONE (10:01)
[2025-03-03 11:00] LABS: #Basophils Less than 0.03 10x3/uL (0.0-0.2); #Eosinophils 0.21 10x3/uL (0.0-0.7); #Monocytes 0.49 10x3/uL (0.11-0.59); #Neutrophils 4.91 10x3/uL (1.40-6.50); %Basophils 0.3 % (0.0-1.0); %Eosinophils 3.2 % (0.0-10.0); %Lymphocytes 13.2 % (21.0-51.0); %Monocytes 7.5 % (0.0-10.0); %Neutrophils 75.5 % (42.0-75.0); Hematocrit 40.9 % (42.0-52.0); Hemoglobin 14.0 g/dL (14.0-18.0); Mean Corpuscular Hemoglobin 32.6 pg (27.0-31.0); Mean Corpuscular Volume 95.1 fL (78.0-98.0); Platelet Count 150 10x3/uL (130-400); Red Blood Cell (RBC) Count 4.30 mill/uL (4.70-6.10); White Blood Cell (WBC) Count 6.51 10x3/uL (4.8-10.8)
[2025-03-03 11:15] LABS: ALT (SGPT) 40 U/L (Less than 45); AST (SGOT) 24 U/L (11-34); Albumin 3.8 g/dL (3.1-4.5); Alkaline Phosphatase 94 U/L (40-110); Anion Gap 13 mmol/L (10-20); BUN (Urea Nitrogen) 22 mg/dL (8.4-25.7); Bilirubin, Total 0.4 mg/dL (0.3-1.2); Calc. Creatinine Clearance 0 mL/min (70-130); Calcium 8.4 mg/dL (7.8-10.44); Carbon Dioxide 25 mmol/L (23-31); Chloride 104 mmol/L (98-107); Globulin 2.8 g/dL (2.4-3.5); Glucose 280 mg/dL (80-115); Lipase 18 U/L (8-78); Magnesium 2.3 mg/dL (1.6-2.6); Potassium 4.4 mmol/L (3.5-5.1); Sodium 138 mmol/L (136-145)
[2025-03-03 11:17] LABS: Troponin I Less than 0.010 ng/mL (< 0.028)
[2025-03-03 12:08] LABS: Bacteria/HPF None Seen HPF (None Seen); CAUTI Indications for Culture Dysuria,urgency,freq; Glucose, Urine (Dipstick) Greater than 1000 mg/dL (Negative); Leukocyte Negative Leu/uL (Negative); Protein, Urine (Dipstick) Negative (Neg-Trace); RBC/HPF 0-3 HPF (0-3); Specific Gravity, Urine 1.029 (1.002-1.036); WBC/HPF 0-3 HPF (0-3)
[2025-03-03 12:10] LABS: Urine Culture Reflex No No
== END 2025-03-03 13:19 | disposition home or self-care (01) ==
LOC: ERS 09:19
DX: R53.1 Weakness (principal); R06.00 Dyspnea, unspecified; E11.9 Type 2 diabetes mellitus without complications; I25.2 Old myocardial infarction; Z95.0 Presence of cardiac pacemaker; Z95.1 Presence of aortocoronary bypass graft; Z87.891 Personal history of nicotine dependence; Z79.02 Long term (current) use of antithrombotics/antiplatelets; Z79.82 Long term (current) use of aspirin; Z79.4 Long term (current) use of insulin; Z79.899 Other long term (current) drug therapy
CPT/HCPCS: 71045; 71275; 80053; 81001; 83690; 83735; 83880; 84484; 85025; 93005; 94760; Q9967